=== PATIENT | male | born 1940 | race Caucasian/White ===

== ENCOUNTER 2016-09-21 15:00 | Inpatient (IN) | payer OTHER ==
[~2016-09-21] VITALS: Ht 175.3 cm; Wt 96.4 kg
[~2016-09-21 15:00] MED LIST: ASPIRIN81 M1 PO; BENADRYL25 MG PO; BYSTOLIC10 MG PO; CLINDAMYCIN HC150 MG PO; GLUCOPHAGE500 MG PO; HYDROCHLOROTHIA25 MG PO; LIPITOR40 MG PO; Levaquin PO; MICRO-K,K-DUR,10 MEQ PO; NORVASC5 MG PO; PRAVACHOL80 MG PO; TOPROL XL50 MG PO; ULTRAM50 MG PO; ZETIA10 MG PO
[2016-09-21 17:18] LABS: EOSINOPHIL (%) 0.1 % (0-5); HEMATOCRIT 42.1 % (38.0-50.0); IMMATURE GRANULOCYTE (%) 0.7 % (0.0-0.7); IMMATURE GRANULOCYTE COUNT 0.1 K/uL; INSTRUMENT ABS NEUTROPHIL CT 12.6 K/uL; LYMPHOCYTE COUNT 1.7 K/uL (1.0-2.8); MCH 31.4 PG (29.0-34.0); MCHC 34.2 G/DL (30.0-36.0); MCV 91.9 FL (86-99); MEAN PLAT.VOLUME 10.6 uM^3 (9.0-12.4); MONOCYTE (%) 12.5 % (3-12); MONOCYTE COUNT 2.1 K/uL (0-0.8); NEUTROPHIL (%) 76.1 % (45-76); NEUTROPHIL COUNT 12.6 K/uL (1.8-6.4); PLATELET COUNT 247 K/uL (156-360); RBC DIS.WIDTH-SD 43.4 % (39-53); RED BLOOD COUNT 4.58 M/uL (4.00-5.50); WHITE BLOOD COUNT 16.5 K/uL (4.1-10.2)
[2016-09-21 17:27] LABS: CHLORIDE 102 mEq/L (99-109); POTASSIUM 3.9 mEq/L (3.7-5.4); SODIUM 136 mEq/L (136-147)
[2016-09-21 17:31] LABS: ANION GAP 14 MEQ/L (2-14); GLUCOSE 218 mg/dL (70-99)
[2016-09-21 17:33] LABS: GFR ESTIMATE (CALCULATED) 57 mL/min/
[2016-09-21 17:34] LABS: UREA NITROGEN (BUN) 25 mg/dL (9-23)
[2016-09-21] MEDS ORDERED: ELIQUIS5 MG PO (17:44)
[2016-09-21 18:27] LABS: ADD MIUA? YES; BILIRUBIN SMALL; BLOOD NEGATIVE; COLOR AMBER ((YELLOW)); GLUCOSE (STRIP) >=500; KETONES 5; LEUKOCYTES NEGATIVE; NITRITE NEGATIVE; PROTEIN (STRIP) 100; SPECIFIC GRAVITY 1.025 (1.000-1.030)
[2016-09-21 18:31] LABS: BACTERIA RARE /HPF; EPITHELIAL CELLS NONE SEEN /HPF; MUCUS 1+ /LPF; RED BLOOD CELLS 0-5 /HPF (0-5); UCUL ADDED? NO; WHITE BLOOD CELLS 0-5 /HPF (0-5)
[2016-09-21 18:32] LABS: TOTAL BILIRUBIN 2.3 mg/dL (0.0-1.0)
[2016-09-21 18:33] LABS: ALKALINE PHOSPHATASE 71 IU/L (3-129)
[2016-09-21 18:36] LABS: DIRECT BILIRUBIN 1.2 mg/dL (0.0-0.3)
[2016-09-21] MEDS ORDERED: POTASSIUM CHLO10 MEQ PO (21:33)
[2016-09-21] MEDS ORDERED: TETRACYCLINE H500 MG PO (21:35)
[2016-09-22 01:25] VITALS: BP 135/76
[2016-09-22 06:33] LABS: EOSINOPHIL (%) 0 % (0-5); HEMATOCRIT 36.4 % (38.0-50.0); IMMATURE GRANULOCYTE (%) 0.9 % (0.0-0.7); IMMATURE GRANULOCYTE COUNT 0.1 K/uL; INSTRUMENT ABS NEUTROPHIL CT 13.4 K/uL; LYMPHOCYTE COUNT 0.6 K/uL (1.0-2.8); MCH 31.1 PG (29.0-34.0); MCHC 33.2 G/DL (30.0-36.0); MCV 93.6 FL (86-99); MONOCYTE (%) 4.1 % (3-12); MONOCYTE COUNT 0.6 K/uL (0-0.8); NEUTROPHIL (%) 90.9 % (45-76); NEUTROPHIL COUNT 13.4 K/uL (1.8-6.4); PLATELET COUNT 205 K/uL (156-360); RBC DIS.WIDTH-SD 44.7 % (39-53); RED BLOOD COUNT 3.89 M/uL (4.00-5.50); WHITE BLOOD COUNT 14.7 K/uL (4.1-10.2)
[2016-09-22 06:49] LABS: POINT-OF-CARE METER ID UU13113725
[2016-09-22 06:50] LABS: ANION GAP 12 MEQ/L (2-14); CHLORIDE 104 MEQ/L (99-109); GFR ESTIMATE (CALCULATED) > 59 mL/min/; GLUCOSE 215 mg/dL (70-99); POTASSIUM 3.8 MEQ/L (3.7-5.4); SAMPLE HEMOLYSIS CHECK 0; SAMPLE ICTERIC CHECK 0; SAMPLE LIPEMIA CHECK 0; SODIUM 137 MEQ/L (136-147); UREA NITROGEN (BUN) 24 mg/dL (9-23)
[2016-09-22 07:14] VITALS: BP 111/68
[2016-09-22 12:15] VITALS: BP 133/72
[2016-09-22 15:30] VITALS: BP 132/77
[2016-09-22 19:40] VITALS: BP 136/84
[2016-09-22 21:27] LABS: POINT-OF-CARE METER ID UU13113725
[2016-09-22 23:42] VITALS: BP 126/58
[2016-09-23 04:25] VITALS: BP 138/72
[2016-09-23 06:57] LABS: EOSINOPHIL (%) 0 % (0-5); HEMATOCRIT 35.1 % (38.0-50.0); IMMATURE GRANULOCYTE (%) 0.6 % (0.0-0.7); IMMATURE GRANULOCYTE COUNT 0.1 K/uL; INSTRUMENT ABS NEUTROPHIL CT 11.6 K/uL; LYMPHOCYTE COUNT 0.7 K/uL (1.0-2.8); MCH 30.9 PG (29.0-34.0); MCV 93.4 FL (86-99); MONOCYTE COUNT 1.1 K/uL (0-0.8); NEUTROPHIL (%) 86.2 % (45-76); NEUTROPHIL COUNT 11.6 K/uL (1.8-6.4); PLATELET COUNT 235 K/uL (156-360); RBC DIS.WIDTH-SD 44.9 % (39-53); RED BLOOD COUNT 3.76 M/uL (4.00-5.50); WHITE BLOOD COUNT 13.5 K/uL (4.1-10.2)
[2016-09-23 07:18] LABS: ANION GAP 13 MEQ/L (2-14); CHLORIDE 104 MEQ/L (99-109); GFR ESTIMATE (CALCULATED) > 59 mL/min/; GLUCOSE 256 mg/dL (70-99); SAMPLE HEMOLYSIS CHECK 2; SAMPLE ICTERIC CHECK 0; SAMPLE LIPEMIA CHECK 0; SODIUM 137 MEQ/L (136-147); UREA NITROGEN (BUN) 30 mg/dL (9-23)
[2016-09-23 07:39] VITALS: BP 128/80
[2016-09-23 11:49] LABS: POINT-OF-CARE METER ID UU13113725
[2016-09-23 16:11] LABS: POINT-OF-CARE METER ID UU13113725
[2016-09-23 17:14] VITALS: BP 132/68
[2016-09-23 19:02] VITALS: BP 141/81
[2016-09-23 23:20] VITALS: BP 131/82
[2016-09-24 03:57] VITALS: BP 138/76
[2016-09-24 07:57] VITALS: BP 124/74
[2016-09-24 08:56] LABS: EOSINOPHIL (%) 0 % (0-5); IMMATURE GRANULOCYTE (%) 0.7 % (0.0-0.7); IMMATURE GRANULOCYTE COUNT 0.1 K/uL; INSTRUMENT ABS NEUTROPHIL CT 10.3 K/uL; LYMPHOCYTE COUNT 0.9 K/uL (1.0-2.8); MCH 30.5 PG (29.0-34.0); MCHC 33.1 G/DL (30.0-36.0); MCV 92.1 FL (86-99); MONOCYTE (%) 7.6 % (3-12); MONOCYTE COUNT 0.9 K/uL (0-0.8); NEUTROPHIL (%) 84.4 % (45-76); NEUTROPHIL COUNT 10.3 K/uL (1.8-6.4); PLATELET COUNT 278 K/uL (156-360); RBC DIS.WIDTH-CV 13.1 % (11.8-14.6); WHITE BLOOD COUNT 12.2 K/uL (4.1-10.2)
[2016-09-24 09:09] LABS: ANION GAP 11 MEQ/L (2-14); CHLORIDE 105 MEQ/L (99-109); GFR ESTIMATE (CALCULATED) > 59 mL/min/; GLUCOSE 268 mg/dL (70-99); POTASSIUM 4.2 MEQ/L (3.7-5.4); SAMPLE HEMOLYSIS CHECK 0; SAMPLE ICTERIC CHECK 0; SAMPLE LIPEMIA CHECK 0; SODIUM 139 MEQ/L (136-147); UREA NITROGEN (BUN) 33 mg/dL (9-23)
[2016-09-24 11:19] LABS: POINT-OF-CARE METER ID UU13113725
[2016-09-24 17:03] LABS: POINT-OF-CARE METER ID UU13113725
[2016-09-24 17:19] VITALS: BP 129/80
[2016-09-24 19:55] VITALS: BP 131/77
[2016-09-24 23:07] VITALS: BP 129/74
[2016-09-25 03:30] VITALS: BP 160/94
[2016-09-25 10:29] VITALS: BP 123/81
[2016-09-25 11:33] LABS: POINT-OF-CARE METER ID UU13113725
[2016-09-25] MEDS ORDERED: Colchicine,Colcrys PO (11:33)
[2016-09-25] MEDS ORDERED: PREDNISONE5 MG PO (11:33)
== END 2016-09-25 12:52 | disposition home or self-care (01) | DRG 554 ==
LOC: EME 15:00 → EDOF 22:19 → 5EAST 22:19
PROVIDERS: Hospitalist; Internal Medicine
DX: M10.022 Idiopathic gout, left elbow (principal); E11.9 Type 2 diabetes mellitus without complications; I25.10 Atherosclerotic heart disease of native coronary artery without angina pectoris; M10.032 Idiopathic gout, left wrist; I48.2 Chronic atrial fibrillation; I10 Essential (primary) hypertension; E78.5 Hyperlipidemia, unspecified; G47.30 Sleep apnea, unspecified; Z79.01 Long term (current) use of anticoagulants; Z95.5 Presence of coronary angioplasty implant and graft
CPT/HCPCS: 73080; 73110; 73130; 73201; 76882; 80048; 80076; 81003; 82948; 83605; 84550; 85025; 85651; 86140; 86430; 87040; 93971; 99281; 99285; J0690; J1815; J2270; J2405; J2543; J2920; J3370; J7030; S0028

== ENCOUNTER 2016-11-21 11:07 | Emergency (ER) | payer OTHER ==
[~2016-11-21] VITALS: Ht 175.3 cm; Wt 89.5 kg
[~2016-11-21 11:07] MED LIST changes: +Colchicine,Colcrys PO; +ELIQUIS5 MG PO; +POTASSIUM CHLO10 MEQ PO; +PREDNISONE5 MG PO; +TETRACYCLINE H500 MG PO
[2016-11-21 13:11] LABS: BASOPHIL COUNT 0.1 K/uL (0-0.1); EOSINOPHIL (%) 0.4 % (0-5); EOSINOPHIL COUNT 0.1 K/uL (0-0.3); HEMATOCRIT 45.4 % (38.0-50.0); IMMATURE GRANULOCYTE (%) 0.5 % (0.0-0.7); IMMATURE GRANULOCYTE COUNT 0.1 K/uL; INSTRUMENT ABS NEUTROPHIL CT 8.8 K/uL; LYMPHOCYTE COUNT 1.7 K/uL (1.0-2.8); MCH 32.2 PG (29.0-34.0); MCHC 34.1 G/DL (30.0-36.0); MCV 94.2 FL (86-99); MEAN PLAT.VOLUME 10.2 uM^3 (9.0-12.4); MONOCYTE (%) 9.2 % (3-12); MONOCYTE COUNT 1.1 K/uL (0-0.8); NEUTROPHIL COUNT 8.8 K/uL (1.8-6.4); PLATELET COUNT 224 K/uL (156-360); RBC DIS.WIDTH-CV 16.5 % (11.8-14.6); RED BLOOD COUNT 4.82 M/uL (4.00-5.50); WHITE BLOOD COUNT 11.7 K/uL (4.1-10.2)
[2016-11-21 13:18] LABS: CHLORIDE 102 mEq/L (99-109); POTASSIUM 4.8 mEq/L (3.7-5.4); SODIUM 136 mEq/L (136-147)
[2016-11-21 13:20] LABS: GLUCOSE 115 mg/dL (70-99); INTER. NORMALIZED RATIO 1.2
[2016-11-21 13:21] LABS: ANION GAP 13 MEQ/L (2-14)
[2016-11-21 13:24] LABS: GFR ESTIMATE (CALCULATED) > 59 mL/min/
[2016-11-21 13:25] LABS: UREA NITROGEN (BUN) 17 mg/dL (9-23)
[2016-11-21] MEDS ORDERED: PERCOCET 5/31 TABLET PO (15:27)
[2016-11-21 16:10] VITALS: BP 122/77
== END 2016-11-21 16:10 | disposition home or self-care (01) ==
LOC: EME 11:07
PROVIDERS: Emergency Medicine
DX: S22.42XA Multiple fractures of ribs, left side, initial encounter for closed fracture (principal); W01.198A Fall on same level from slipping, tripping and stumbling with subsequent striking against other object, initial encounter; I48.91 Unspecified atrial fibrillation; Z79.01 Long term (current) use of anticoagulants; I25.2 Old myocardial infarction; E78.5 Hyperlipidemia, unspecified; Z88.8 Allergy status to other drugs, medicaments and biological substances
CPT/HCPCS: 71101; 71260; 74177; 80048; 85025; 85610; 99281; 99285; J3010; J7030